=== PATIENT | male | born 1970 | race Caucasian/White ===

== ENCOUNTER → 2017-01-26 | Outpatient (CLI) | payer BC ==
--- NOTE | 2017-01-26 16:03 | KCIC ---
PROCEDURE MRI lumbar spine without contrast HISTORY Lumbar radiculitis, pain in the right leg, previous fall May 2016, progressive low back pain TECHNIQUE Multiplanar, multi sequential non contrast MR imaging was performed of the lumbar spine. COMPARISON None FINDINGS Lumbar vertebral body stature and AP alignment are adequate. Conus terminates at T12-L1. There is fairly advanced degenerative disc disease at L5-S1 and to a somewhat lesser degree at L4-5, L3-4, and L1-2. There is no significant marrow edema. T11-12: There is minimal disc osteophyte complex. Spinal canal and neural foramina are adequate. T12-L1: Spinal canal and neural foramina are adequate. L1-2: There is minimal disc osteophyte complex and bulge. Spinal canal and neural foramina are adequate. L2-3: There is minimal disc osteophyte complex and bulge. There is posterior annular tear. Spinal canal and neural foramina are adequate. L3-4: There is minimal disc osteophyte complex and bulge. There is mild narrowing of the inferior left neural foramen by bulge/protrusion, near undersurface of the exiting left L3 nerve root without displacement. Right neural foramen is overall adequate. Spinal canal is adequate. L4-5: There is minimal disc osteophyte complex and bulge. There is very mild narrowing of the far lateral recesses bilaterally. There is mild facet degenerative change on the right. There is moderate narrowing of the left neural foramen by disc osteophyte complex and shallow protrusion, near the undersurface of the exiting left L4 nerve root in the neural foramen. Right neural foramen is overall adequate. L5-S1: There is broad posterior bulge and very shallow central protrusion. Spinal canal is adequate. There is no displacement of the descending S1 nerve roots. Left neural foramen is adequate. Disc osteophyte complex and protrusion contributes to moderate to severe narrowing of the right neural foramen greater distally with impingement of the exiting right L5 nerve root in the distal neural foramen and proximal extraforaminal region. IMPRESSION 1. There is more significant narrowing of the right L5-S1 neural foramen by disc osteophyte complex and protrusion with impingement of the exiting right L5 nerve root. There is moderate narrowing of the left L4-5 neural foramen. 2. There is fairly advanced degenerative disc disease at L5-S1, to a lesser degree at other levels other than sparing L2-3. 3. There is no significant lumbar spinal stenosis, very mild narrowing of the far lateral recesses bilaterally at L4-5. Electronically signed by: Wang Michael MD (Jan 26, 2017 16:01:40)
== END | disposition home or self-care (01) ==
LOC: KCIC MRI 14:34
PROVIDERS: ATTEND Physical Medicine & Rehabilitation
DX: M51.37 Other intervertebral disc degeneration, lumbosacral region (principal)
CPT/HCPCS: 72148

== ENCOUNTER 2017-09-16 22:39 | Inpatient (IN) | payer BC ==
[~2017-09-16] VITALS: Ht 167.6 cm; Wt 100.0 kg
--- NOTE | 2017-09-16 22:52 | PHYS DOC ---
Adult General Chief Complaint Chief Complaint: CHEST PAIN HPI HPI Patient is a 46 year old male who presents with chest pain/ epigastric abdominal discomfort. He states his been going on for the last week and is been getting worse. He states the burning sensation radiates up into his throat. States the discomfort is worse in his have some shortness of breath when he ambulates. States is different and he had his heart attack when he had pain down his left arm. He has had some nausea vomiting and noticed a speck of blood in his vomit today. He is also been having 6 loose stools today. He states the pains better when he takes Tums or Pepto-Bismol. He's also been using Zantac [id number]. He states he's had a heart attack and had have stents 2 years ago the [facility]. He continues to smoke. He does take a baby aspirin daily and has on a shot for his cholesterol. Review of Systems Review of Systems Constitutional: Denies fever or chills [] Eyes: Denies change in visual acuity, redness, or eye pain [] HENT: Denies nasal congestion or sore throat [] Respiratory: Denies cough or shortness of breath [] Cardiovascular: No additional information not addressed in HPI [] GI: Positive for abdominal pain, nausea, vomiting, bloody stools or diarrhea [] : Denies dysuria or hematuria [] Musculoskeletal: Denies back pain or joint pain [] Integument: Denies rash or skin lesions [] Neurologic: Denies headache, focal weakness or sensory changes [] Endocrine: Denies polyuria or polydipsia [] All other systems were reviewed and found to be within normal limits, except as documented in this note. Current Medications Current Medications Current Medications Medications (Trade) Dose Ordered Sig/Amina Start Time Stop Time Status Last Admin Dose Admin Morphine Sulfate 2 mg PRN Q15MIN PRN 09/16/17 23:00 09/17/17 10:04 DC Multi-Ingredient Mouthwash/Gargle (Gi Cocktail Single Dose) 15 ml 1X ONCE 09/16/17 23:30 09/16/17 23:31 DC 09/16/17 23:24 15 ML Nitroglycerin (Nitrostat) 0.4 mg PRN Q5MIN PRN 09/16/17 23:00 09/17/17 10:04 DC 09/16/17 23:09 0.4 MG Allergies Allergies Allergies Coded Allergies Type Severity Reaction Last Updated Verified hydrocodone Allergy Mild Hallucinations 09/16/17 Yes oxycodone Allergy Mild hallucinations 09/16/17 Yes Physical Exam Physical Exam Constitutional: Well developed, well nourished, no acute distress, non-toxic appearance. [] HENT: Normocephalic, atraumatic, bilateral external ears normal, oropharynx moist, no oral exudates, nose normal. [] Eyes: PERRLA, EOMI, conjunctiva normal, no discharge. [] Neck: Normal range of motion, no tenderness, supple, no stridor. [] Cardiovascular:Heart rate regular rhythm, no murmur [] Lungs & Thorax: Bilateral breath sounds clear to auscultation [] Abdomen: Bowel sounds normal, soft, no tenderness to palpation in the epigastric area, no rebound or guarding, no masses, no pulsatile masses. [] Skin: Warm, dry, no erythema, no rash. [] Back: No tenderness, no CVA tenderness. [] Extremities: No tenderness, no cyanosis, no clubbing, ROM intact, no edema. [] Neurologic: Alert and oriented X 3, normal motor function, normal sensory function, no focal deficits noted. [] Psychologic: Affect normal, judgement normal, mood normal. [] Current Patient Data Vital Signs Vital Signs Date Time Temp Pulse Resp B/P (MAP) Pulse Ox O2 Delivery O2 Flow Rate FiO2 09/16/17 23:35 82 17 108/66 (80) 98 Room Air 09/16/17 22:41 97.9 97.9 Lab Values Laboratory Tests Test 09/16/17 22:51 09/16/17 23:30 09/16/17 23:45 White Blood Count 8.7 x10^3/uL (4.0-11.0) Red Blood Count 5.01 x10^6/uL (4.30-5.70) Hemoglobin 15.7 g/dL (13.0-17.5) Hematocrit 46.7 % (39.0-53.0) Mean Corpuscular Volume 93 fL (79-100) Mean Corpuscular Hemoglobin 31 pg (25-35) Mean Corpuscular Hemoglobin Concent 34 g/dL (31-37) Red Cell Distribution Width 14.9 % (11.5-14.5) H Platelet Count 255 x10^3/uL (140-400) Neutrophils (%) (Auto) 61 % (31-73) Lymphocytes (%) (Auto) 28 % (24-48) Monocytes (%) (Auto) 9 % (0-9) Eosinophils (%) (Auto) 2 % (0-3) Basophils (%) (Auto) 0 % (0-3) Neutrophils # (Auto) 5.3 x10^3uL (1.8-7.7) Lymphocytes # (Auto) 2.4 x10^3/uL (1.0-4.8) Monocytes # (Auto) 0.8 x10^3/uL (0.0-1.1) Eosinophils # (Auto) 0.2 x10^3/uL (0.0-0.7) Basophils # (Auto) 0.0 x10^3/uL (0.0-0.2) Prothrombin Time 11.9 SEC (11.7-14.0) Prothrombin Time INR 0.9 (0.8-1.1) Sodium Level 140 mmol/L (136-145) Potassium Level 3.8 mmol/L (3.5-5.1) Chloride Level 103 mmol/L (98-107) Carbon Dioxide Level 30 mmol/L (21-32) Anion Gap 7 (6-14) Blood Urea Nitrogen 20 mg/dL (8-26) Creatinine 1.2 mg/dL (0.7-1.3) Estimated GFR (Cockcroft-Gault) 65.2 Glucose Level 118 mg/dL (70-99) H Calcium Level 9.2 mg/dL (8.5-10.1) Magnesium Level 2.4 mg/dL (1.8-2.4) Total Bilirubin 0.4 mg/dL (0.2-1.0) Direct Bilirubin 0.1 mg/dL (0.0-0.2) Aspartate Amino Transferase (AST) 26 U/L (15-37) Alanine Aminotransferase (ALT) 30 U/L (16-63) Alkaline Phosphatase 113 U/L (46-116) Creatine Kinase 269 U/L (39-308) Creatine Kinase MB (Mass) 1.3 ng/mL (0.0-3.6) Creatine Kinase MB Relative Index 0.5 % (0-4) Troponin I Quantitative < 0.017 ng/mL (0.000-0.055) RJ-Tip-Q-Type Natriuretic Peptide 34 pg/mL (0-124) Total Protein 7.7 g/dL (6.4-8.2) Albumin 3.4 g/dL (3.4-5.0) Lipase 238 U/L (73-393) Thyroid Stimulating Hormone (TSH) 2.220 uIU/mL (0.358-3.74) Stool Occult Blood Negative (NEG) Urine Collection Type Unknown Urine Color Yellow Urine Clarity Clear Urine pH 5.5 Urine Specific [place] >=1.030 Urine Protein Negative mg/dL (NEG-TRACE) Urine Glucose (UA) Negative mg/dL (NEG) Urine Ketones (Stick) Negative mg/dL (NEG) Urine Blood Negative (NEG) Urine Nitrite Negative (NEG) Urine Bilirubin Negative (NEG) Urine Urobilinogen Dipstick 0.2 mg/dL (0.2 mg/dL) Urine Leukocyte Esterase Small (NEG) Urine RBC 0 /HPF (0-2) Urine WBC 1-4 /HPF (0-4) Urine Squamous Epithelial Cells Occ /LPF Urine Bacteria 0 /HPF (0-FEW) Urine Mucus Mod /LPF Urine Opiates Screen Neg (NEG) Urine Methadone Screen Neg (NEG) Urine Barbiturates Neg (NEG) Urine Phencyclidine Screen Neg (NEG) Urine Amphetamine/Methamphetamine Pos (NEG) Urine Benzodiazepines Screen Neg (NEG) Urine Cocaine Screen Neg (NEG) Urine Cannabinoids Screen Neg (NEG) Urine Ethyl Alcohol Neg (NEG) Laboratory Tests 09/16/17 22:51 Laboratory Tests 09/16/17 22:51 EKG EKG EKG shows sinus rhythm with a rate of [address] elevations or T- wave inversions appreciated, left axis deviation noted, QTC 434 ms, as interpreted by me. Radiology/Procedures Radiology/Procedures One view chest x-ray did not show any focal consolidations, bony abnormality's, pneumothorax, as interpreted by me.[] Impressions: Chest pain Nausea vomiting diarrhea Coronary artery disease Dyslipidemia Course & Med Decision Making Course & Med Decision Making Pertinent Labs and Imaging studies reviewed. (See chart for details) EKG, labs are nonacute. Patient will be admitted to the hospitalist for chest pain rule out. I also typed and screened him because he states he's had a little blood on vomiting. He's not had any additional vomiting or bleeding in the ER. He is stable to be admitted to the floor. Interim orders have been written. Dragon Disclaimer Dragon Disclaimer This electronic medical record was generated, in whole or in part, using a voice recognition dictation system. Departure Departure Impression: Primary Impression: Chest pain Disposition: ADMITTED INPATIENT Admitting Physician: Bettina Nelson Condition: STABLE Referrals: UNKNOWN PCP NAME (PCP) Scripts Pantoprazole Sodium (PROTONIX) 40 Mg Tablet.dr 1 TAB PO DAILY, #30 TAB 5 Refills Prov: CARRIE CONCEPCION MD 09/17/17 MICA ROBERTSON MD Sep 16, 2017 22:52
[2017-09-16] MEDS ORDERED: NITROGLYCERIN SUBLINGUAL 0.4 MG BOTTLE OF 25. SL PRN (23:00)
[2017-09-16] MEDS ORDERED: MORPHINE SULFATE 2 MG/ML DISP.SYRIN. IV/SQ PRN (23:00)
[2017-09-16 23:13] LABS: BASO % 0 % (0-3); EOS % 2 % (0-3); HEMATOCRIT 46.7 % (39.0-53.0); HEMOGLOBIN 15.7 g/dL (13.0-17.5); LYMPH # 2.4 x10^3/uL (1.0-4.8); LYMPH % 28 % (24-48); MEAN CORPUSCULAR HEMOGLOBIN 31 pg (25-35); MEAN CORPUSCULAR HGB CONC 34 g/dL (31-37); MEAN CORPUSCULAR VOLUME 93 fL (79-100); MONO % 9 % (0-9); NEUT % 61 % (31-73); PLATELET COUNT 255 x10^3/uL (140-400); RED BLOOD COUNT 5.01 x10^6/uL (4.30-5.70); RED CELL DISTRIBUTION WIDTH 14.9 % (11.5-14.5); WHITE BLOOD COUNT 8.7 x10^3/uL (4.0-11.0)
[2017-09-16] MEDS ORDERED: LIDO:MAALOX:DONNATAL 1:1:1 15 ML SINGLE DOSE ONE (23:22)
[2017-09-16] MEDS ORDERED: LIDO:MAALOX:DONNATAL 1:1:1 15 ML SINGLE DOSE SWSW ONE (23:30)
[2017-09-16 23:37] LABS: CALCIUM 9.2 mg/dL (8.5-10.1); CREATININE 1.2 mg/dL (0.7-1.3); GFR 65.2; POTASSIUM 3.8 mmol/L (3.5-5.1)
[2017-09-16 23:38] LABS: INR 0.9 (0.8-1.1); PROTHROMBIN TIME PATIENT 11.9 SEC (11.7-14.0)
[2017-09-16 23:45] LABS: ALBUMIN 3.4 g/dL (3.4-5.0); DIRECT BILIRUBIN 0.1 mg/dL (0.0-0.2); MAGNESIUM 2.4 mg/dL (1.8-2.4); TOTAL BILIRUBIN 0.4 mg/dL (0.2-1.0); TOTAL PROTEIN 7.7 g/dL (6.4-8.2)
[2017-09-16 23:48] LABS: CKMB MASS 1.3 ng/mL (0.0-3.6)
[2017-09-16 23:55] VITALS: BP 114/72
[2017-09-17 00:09] LABS: BARBITURATES NEG (NEG); BENZODIAZEPINES NEG (NEG); CANNABINOIDS NEG (NEG); COCAINE NEG (NEG); METHADONE NEG (NEG); OPIATES NEG (NEG); PHENCYCLIDINE NEG (NEG)
[2017-09-17 00:25] LABS: NEG OBC FOB NEG; POS OBC FOB POS
[2017-09-17 00:37] LABS: BILIRUBIN,URINE NEGATIVE (NEG); GLUCOSE,URINE NEGATIVE (NEG); NITRITE,URINE NEGATIVE (NEG); PH,URINE 5.5; PROTEIN,URINE NEGATIVE (NEG-TRACE); UROBILINOGEN,URINE 0.2 mg/dL (0.2 mg/dL)
[2017-09-17] MEDS ORDERED: ASPI-630 PO (00:51)
[2017-09-17] MEDS ORDERED: RANI150C PO (00:51)
[2017-09-17] MEDS ORDERED: EVOL140S SQ (00:51)
[2017-09-17] MEDS ORDERED: METO-239 PO (00:51)
[2017-09-17] MEDS ORDERED: ONDANSETRON PF 4 MG/2 ML VIAL. IV PRN ×2 (01:00→08:30)
[2017-09-17 01:12] LABS: BACTERIA,URINE 0 /HPF (0-FEW); RBC,URINE 0 /HPF (0-2); SQUAMOUS EPITHELIAL CELL,UR OCC /LPF
[2017-09-17 03:00] VITALS: BP 107/70
[2017-09-17 07:00] VITALS: BP 100/56
--- NOTE | 2017-09-17 08:09 | RAD ---
Single view chest History:chest pain An AP view of the chest is submitted. Comparison: None Findings: There is no significant infiltrate, pleural effusion, or pneumothorax. The pericardial cardiac silhouette is within normal limits in size. The trachea is in the midline. There is eventration right hemidiaphragm. There is degenerative change left acromioclavicular joint. Impression: There is no evidence of acute cardiopulmonary disease.
--- NOTE | 2017-09-17 08:09 | CONS ---
DATE OF CONSULTATION: 09/17/2017 REASON FOR CONSULTATION: Chest discomfort. HISTORY OF PRESENT ILLNESS: The patient is a 46-year-old male with past medical history as noted below, who presents to the hospital in the setting of gastroesophageal issues. He reports over the last week or so, he has had some progressive heartburn. He has been using doses of PPIs and H2 blockers. He has also had explosive diarrhea according to him. He denies any new medications or sick contacts. Upon arrival to the ER, he was given a GI cocktail, which he reports relieved his chest discomfort, which appears to be related to his heartburn. Of note, the patient has had previous coronary intervention and he reports that his current symptoms do not feel like his prior symptoms. He denies any exertional angina or chest pain. He reports of recent stress test at [facility] 3 months ago, which was apparently unremarkable. PAST MEDICAL HISTORY: 1. Coronary artery disease, status post PCI, vessels unknown. 2. Minimal hypertension. 3. Dyslipidemia, on Repatha. 4. Gastroesophageal reflux disease. SOCIAL HISTORY: The patient continues to smoke. He is currently unemployed. He lives with his girlfriend. He denies any significant alcohol use. He denies any illicit drug use. FAMILY HISTORY: Noncontributory. ALLERGIES: HYDROCODONE AND OXYCODONE. CARDIOVASCULAR MEDICATIONS: 1. Aspirin 81 mg daily. 2. Repatha 140 mg q. 2 weeks. 3. Metoprolol succinate 25 mg daily. 4. Ranitidine 150 mg daily. REVIEW OF SYSTEMS: Negative for 10 out of 14 systems reviewed, unless otherwise mentioned above in the HPI. PHYSICAL EXAMINATION: VITAL SIGNS: Afebrile, 78, 18, 107/70 and 98% on room air. GENERAL: He is alert and oriented, in no acute distress. HEAD AND NECK EXAMINATION: Unremarkable. CARDIAC: Regular rate and rhythm, without any murmurs, rubs or gallops. LUNGS: Clear to auscultation bilaterally anteriorly. ABDOMEN: Mildly tender to palpation diffusely. No rebound or guarding. EXTREMITIES: No clubbing, cyanosis or edema. A 2+ radial and dorsalis pedis pulses. NEUROLOGIC: No focal deficits. MUSCULOSKELETAL: No trauma. DIAGNOSTIC STUDIES: Hemoglobin 15.7, platelets 255,000. Creatinine 1.2. Troponin negative x 2. Chest x-ray reveals minimal vascular congestion, without any obvious infiltrates. EKG is unremarkable. IMPRESSION: 1. Chest discomfort secondary to gastroesophageal reflux disease. 2. Coronary artery disease, currently stable without angina, with negative cardiac biomarkers and EKG. RECOMMENDATIONS: At this present time, given the fact that the patient's enzymes are normal and EKG is unremarkable as well as a recent stress test which has been negative, it is very low likelihood that he has any coronary pathology. Recommend further evaluation for GI issues. Thank you for this consultation. Please call with any questions. The patient will follow up with his primary bakery assistant at [facility]. JAI FLOWERS MD DR: VANE/paul JOB#: [id number] / [id number] SHIRA
[2017-09-17] MEDS ORDERED: IPRATRPIUM/ALBUTEROL 0.5/2.5MG 3 ML NEBU. NEB SCH (08:30)
[2017-09-17] MEDS ORDERED: MAG HYDROX/ALUMINUM HYD/SIMETH 30 ML ORAL.SUSP PO PRN (08:30)
[2017-09-17] MEDS ORDERED: PANTOPRAZOLE 40 MG TABLET.DR. PO SCH (08:30)
[2017-09-17] MEDS ORDERED: CALCIUM CARBONATE 500 MG TAB.CHEW PO PRN (08:30)
[2017-09-17 09:00] VITALS: BP 100/56
[2017-09-17] MEDS ORDERED: NON FORMULARY ITEM (Evolocumab (Repatha Syringe) 140 MG) SQ SCH (09:00)
[2017-09-17] MEDS ORDERED: FAMOTIDINE 20 MG TABLET. PO SCH (09:00)
[2017-09-17] MEDS ORDERED: ASPIRIN CHEWABLE 81 MG TABLET. PO SCH (09:00)
[2017-09-17] MEDS ORDERED: METOPROLOL SUCC 24HR ER 25 MG TAB.ER.24H. PO SCH (09:00)
[2017-09-17] MEDS ORDERED: PANT40TA3 PO (09:48)
--- NOTE | 2017-09-17 09:52 | PDOC1 ---
History and Physical Date of Admission Date of Admission DATE: 09/17/17 TIME: 09:48 Identification/Chief Complaint Chief Complaint chest pain Problems: Source Source: Caregiver, Chart review, Patient History of Present Illness History of Present Illness 46 y,o male, obese sedentary but no known CAD,admitted for CP, CE and ekg r,o cardiac cause, better with GI cocktail, HAs been takling zantac 6x day maybe x mos with no relief, I advised PPI and ff up GI, Gave names, I faxed PPI to his pharmacy. He has had recent [facility] work up 3 mos ago including stress test and was neg, Cleared from cards to go home, Seen and examined, Dw too time 32 mins all qs answered Conults: cards Proc: none Past Medical History Cardiovascular: No pertinent hx Pulmonary: No pertinent hx GI: No pertinent hx, GERD Heme/Onc: No pertinent hx Hepatobiliary: No pertinent hx Psych: No pertinent hx Infectious disease: No pertinent hx ENT: No pertinent hx Renal/: No pertinent hx Endocrine: No pertinent hx Dermatology: No pertinent hx Past Surgical History Past Surgical History: No pertinent history Family History Family History: Hypertension Social History Smoke: No ALCOHOL: none Drugs: None Current Problem List Problem List Problems Medical Problems: (1) Chest pain Status: Acute Problems: Current Medications Current Medications Current Medications Nitroglycerin (Nitrostat) 0.4 mg PRN Q5MIN PRN SL CP RATING > 1/10 Last administered on 09/16/17 23:09; Start 09/16/17 at 23:00; Stop 09/17/17 at 22 :59 Morphine Sulfate 2 mg PRN Q15MIN PRN IV/SQ PAIN GREATER THAN 3/10; Start 09/16 at 23:00; Stop 09/17/17 at 22:59 Multi-Ingredient Mouthwash/Gargle (Gi Cocktail Single Dose) 15 ml 1X ONCE SWSW Last administered on 09/16/17 23:24; Start 09/16/17 at 23:30; Stop at 23:31; Status DC Ondansetron HCl (Zofran) 4 mg PRN Q8HRS PRN IV NAUSEA/VOMITING; Start at 01:00; Stop 09/17/17 at 08:17; Status DC Ondansetron HCl (Zofran) 4 mg PRN Q6HRS PRN IV NAUSEA/VOMITING; Start at 08:30; Stop 09/18/17 at 08:29 Albuterol/ Ipratropium (Duoneb) 3 ml RTQID NEB Last administered on 09/17/17t 08:30; Start 09/17/17 at 08:30 Aspirin (Children'S Aspirin) 81 mg DAILY PO ; Start 09/17/17 at 09:00 Metoprolol Succinate (Toprol Xl) 25 mg DAILY PO ; Start 09/17/17 at 09:00 Non-Formulary Medication 140 mg Q2WKS SQ ; Start 09/17/17 at 09:00; Status UNV Famotidine (Pepcid) 20 mg DAILY PO ; Start 09/17/17 at 09:00 Pantoprazole Sodium (Protonix) 40 mg DAILYAC PO ; Start 09/17/17 at 08:30 Calcium Carbonate/ Glycine (Tums) 500 mg PRN AFTMEALHC PRN PO INDIGESTION; Start 09/17/17 at 08:30 Al Hydroxide/Mg Hydroxide (Mylanta Plus Xs) 30 ml PRN Q2HR PRN PO HEARTBURN / GAS; Start 09/17/17 at 08:30 Active Scripts Active Reported Repatha Syringe (Evolocumab) 140 Mg/1 Ml Syringe 140 Mg SQ Q2WKS Ranitidine Hcl 150 Mg Capsule 1 Cap PO DAILY Aspirin 81 Mg Tab.chew 1 Tab PO DAILY Metoprolol Succinate ( Xl ) (Metoprolol Succinate) 25 Mg Tab.er.24h 1 Tab PO DAILY Allergies Allergies: Coded Allergies: hydrocodone (Verified Allergy, Mild, Hallucinations, 09/16/17) oxycodone (Verified Allergy, Mild, hallucinations, 09/16/17) ROS Review of System all 14 pt reveiwed neg Physical Exam General: Alert, Oriented X3, Cooperative, No acute distress HEENT: Atraumatic, PERRLA, EOMI Lungs: Clear to auscultation, Normal air movement Heart: S1S2, RRR, no thrills, no rubs, no gallops, no murmurs Cardiovascular: S1, S2 Abdomen: Normal bowel sounds, Soft, No tenderness, No hepatosplenomegaly, No masses Male Genitals Exam: normal genitalia, normal prostate Rectal Exam: not examined PELVIC: Nml ext genitalia Extremities: No clubbing, No cyanosis, No edema, Normal pulses, No tenderness/ swelling Skin: No rashes, No breakdown, No significant lesion Neuro: Normal gait, Normal speech, Strength at 5/5 X4 ext, Normal tone, Sensation intact, Cranial nerves 3-12 NL, Reflexes 2+ Psych/Mental Status: Mental status NL Vitals Vitals Vital Signs Date Time Temp Pulse Resp B/P (MAP) Pulse Ox O2 Delivery O2 Flow Rate FiO2 09/17/17 09:00 87 100/56 09/17/17 08:46 100 Room Air 09/17/17 07:00 97.7 18 97.7 Labs Labs Laboratory Tests Test 09/16/17 22:51 09/16/17 23:30 09/16/17 23:45 09/17/17 07:00 White Blood Count 8.7 x10^3/uL (4.0-11.0) Red Blood Count 5.01 x10^6/uL (4.30-5.70) Hemoglobin 15.7 g/dL (13.0-17.5) Hematocrit 46.7 % (39.0-53.0) Mean Corpuscular Volume 93 fL (79-100) Mean Corpuscular Hemoglobin 31 pg (25-35) Mean Corpuscular Hemoglobin Concent 34 g/dL (31-37) Red Cell Distribution Width 14.9 % (11.5-14.5) Platelet Count 255 x10^3/uL (140-400) Neutrophils (%) (Auto) 61 % (31-73) Lymphocytes (%) (Auto) 28 % (24-48) Monocytes (%) (Auto) 9 % (0-9) Eosinophils (%) (Auto) 2 % (0-3) Basophils (%) (Auto) 0 % (0-3) Neutrophils # (Auto) 5.3 x10^3uL (1.8-7.7) Lymphocytes # (Auto) 2.4 x10^3/uL (1.0-4.8) Monocytes # (Auto) 0.8 x10^3/uL (0.0-1.1) Eosinophils # (Auto) 0.2 x10^3/uL (0.0-0.7) Basophils # (Auto) 0.0 x10^3/uL (0.0-0.2) Prothrombin Time 11.9 SEC (11.7-14.0) Prothromb Time International Ratio 0.9 (0.8-1.1) Sodium Level 140 mmol/L (136-145) Potassium Level 3.8 mmol/L (3.5-5.1) Chloride Level 103 mmol/L (98-107) Carbon Dioxide Level 30 mmol/L (21-32) Anion Gap 7 (6-14) Blood Urea Nitrogen 20 mg/dL (8-26) Creatinine 1.2 mg/dL (0.7-1.3) Estimated GFR (Cockcroft-Gault) 65.2 Glucose Level 118 mg/dL (70-99) Calcium Level 9.2 mg/dL (8.5-10.1) Magnesium Level 2.4 mg/dL (1.8-2.4) Total Bilirubin 0.4 mg/dL (0.2-1.0) Direct Bilirubin 0.1 mg/dL (0.0-0.2) Aspartate Amino Transf (AST/SGOT) 26 U/L (15-37) Alanine Aminotransferase (ALT/SGPT) 30 U/L (16-63) Alkaline Phosphatase 113 U/L (46-116) Creatine Kinase 269 U/L (39-308) Creatine Kinase MB (Mass) 1.3 ng/mL (0.0-3.6) Creatine Kinase MB Relative Index 0.5 % (0-4) Troponin I Quantitative < 0.017 ng/mL (0.000-0.055) < 0.017 ng/mL (0.000-0.055) PN-Tgp-B-Type Natriuretic Peptide 34 pg/mL (0-124) Total Protein 7.7 g/dL (6.4-8.2) Albumin 3.4 g/dL (3.4-5.0) Lipase 238 U/L (73-393) Thyroid Stimulating Hormone (TSH) 2.220 uIU/mL (0.358-3.74) Stool Occult Blood Negative (NEG) Urine Collection Type Unknown Urine Color Yellow Urine Clarity Clear Urine pH 5.5 Urine Specific [place] >=1.030 Urine Protein Negative mg/dL (NEG-TRACE) Urine Glucose (UA) Negative mg/dL (NEG) Urine Ketones (Stick) Negative mg/dL (NEG) Urine Blood Negative (NEG) Urine Nitrite Negative (NEG) Urine Bilirubin Negative (NEG) Urine Urobilinogen Dipstick 0.2 mg/dL (0.2 mg/dL) Urine Leukocyte Esterase Small (NEG) Urine RBC 0 /HPF (0-2) Urine WBC 1-4 /HPF (0-4) Urine Squamous Epithelial Cells Occ /LPF Urine Bacteria 0 /HPF (0-FEW) Urine Mucus Mod /LPF Urine Opiates Screen Neg (NEG) Urine Methadone Screen Neg (NEG) Urine Barbiturates Neg (NEG) Urine Phencyclidine Screen Neg (NEG) Urine Amphetamine/Methamphetamine Pos (NEG) Urine Benzodiazepines Screen Neg (NEG) Urine Cocaine Screen Neg (NEG) Urine Cannabinoids Screen Neg (NEG) Urine Ethyl Alcohol Neg (NEG) Laboratory Tests Test 09/16/17 22:51 09/16/17 23:30 09/16/17 23:45 09/17/17 07:00 White Blood Count 8.7 x10^3/uL (4.0-11.0) Red Blood Count 5.01 x10^6/uL (4.30-5.70) Hemoglobin 15.7 g/dL (13.0-17.5) Hematocrit 46.7 % (39.0-53.0) Mean Corpuscular Volume 93 fL (79-100) Mean Corpuscular Hemoglobin 31 pg (25-35) Mean Corpuscular Hemoglobin Concent 34 g/dL (31-37) Red Cell Distribution Width 14.9 % (11.5-14.5) Platelet Count 255 x10^3/uL (140-400) Neutrophils (%) (Auto) 61 % (31-73) Lymphocytes (%) (Auto) 28 % (24-48) Monocytes (%) (Auto) 9 % (0-9) Eosinophils (%) (Auto) 2 % (0-3) Basophils (%) (Auto) 0 % (0-3) Neutrophils # (Auto) 5.3 x10^3uL (1.8-7.7) Lymphocytes # (Auto) 2.4 x10^3/uL (1.0-4.8) Monocytes # (Auto) 0.8 x10^3/uL (0.0-1.1) Eosinophils # (Auto) 0.2 x10^3/uL (0.0-0.7) Basophils # (Auto) 0.0 x10^3/uL (0.0-0.2) Prothrombin Time 11.9 SEC (11.7-14.0) Prothromb Time International Ratio 0.9 (0.8-1.1) Sodium Level 140 mmol/L (136-145) Potassium Level 3.8 mmol/L (3.5-5.1) Chloride Level 103 mmol/L (98-107) Carbon Dioxide Level 30 mmol/L (21-32) Anion Gap 7 (6-14) Blood Urea Nitrogen 20 mg/dL (8-26) Creatinine 1.2 mg/dL (0.7-1.3) Estimated GFR (Cockcroft-Gault) 65.2 Glucose Level 118 mg/dL (70-99) Calcium Level 9.2 mg/dL (8.5-10.1) Magnesium Level 2.4 mg/dL (1.8-2.4) Total Bilirubin 0.4 mg/dL (0.2-1.0) Direct Bilirubin 0.1 mg/dL (0.0-0.2) Aspartate Amino Transf (AST/SGOT) 26 U/L (15-37) Alanine Aminotransferase (ALT/SGPT) 30 U/L (16-63) Alkaline Phosphatase 113 U/L (46-116) Creatine Kinase 269 U/L (39-308) Creatine Kinase MB (Mass) 1.3 ng/mL (0.0-3.6) Creatine Kinase MB Relative Index 0.5 % (0-4) Troponin I Quantitative < 0.017 ng/mL (0.000-0.055) < 0.017 ng/mL (0.000-0.055) KC-Qyy-T-Type Natriuretic Peptide 34 pg/mL (0-124) Total Protein 7.7 g/dL (6.4-8.2) Albumin 3.4 g/dL (3.4-5.0) Lipase 238 U/L (73-393) Thyroid Stimulating Hormone (TSH) 2.220 uIU/mL (0.358-3.74) Stool Occult Blood Negative (NEG) Urine Collection Type Unknown Urine Color Yellow Urine Clarity Clear Urine pH 5.5 Urine Specific [place] >=1.030 Urine Protein Negative mg/dL (NEG-TRACE) Urine Glucose (UA) Negative mg/dL (NEG) Urine Ketones (Stick) Negative mg/dL (NEG) Urine Blood Negative (NEG) Urine Nitrite Negative (NEG) Urine Bilirubin Negative (NEG) Urine Urobilinogen Dipstick 0.2 mg/dL (0.2 mg/dL) Urine Leukocyte Esterase Small (NEG) Urine RBC 0 /HPF (0-2) Urine WBC 1-4 /HPF (0-4) Urine Squamous Epithelial Cells Occ /LPF Urine Bacteria 0 /HPF (0-FEW) Urine Mucus Mod /LPF Urine Opiates Screen Neg (NEG) Urine Methadone Screen Neg (NEG) Urine Barbiturates Neg (NEG) Urine Phencyclidine Screen Neg (NEG) Urine Amphetamine/Methamphetamine Pos (NEG) Urine Benzodiazepines Screen Neg (NEG) Urine Cocaine Screen Neg (NEG) Urine Cannabinoids Screen Neg (NEG) Urine Ethyl Alcohol Neg (NEG) VTE Prophylaxis Ordered VTE Prophylaxis Devices: Yes VTE Pharmacological Prophylaxi: Yes Assessment/Plan Assessment/Plan 1. GERD 2. NOn cardiac CP 3. Obese BMI 35] 4. Recent normal stress test PLAN: home today OP GI PPI CARRIE CONCEPCION MD Sep 17, 2017 09:52
--- NOTE | 2017-09-17 09:53 | PDOC3 ---
Discharge Summary Visit Information Date of Admission: Sep 16, 2017 Date of Discharge: Sep 17, 2017 Admitting Diagnosis Comment: GERD, Obesity Recent normal MPI [facility] Final Diagnosis Problems Medical Problems: (1) Chest pain Status: Acute Brief Hospital Course Allergies Allergies Coded Allergies Type Severity Reaction Last Updated Verified hydrocodone Allergy Mild Hallucinations 09/16/17 Yes oxycodone Allergy Mild hallucinations 09/16/17 Yes Vital Signs Vital Signs Date Time Temp Pulse Resp B/P (MAP) Pulse Ox O2 Delivery O2 Flow Rate FiO2 09/17/17 09:00 87 100/56 09/17/17 08:46 100 Room Air 09/17/17 07:00 97.7 18 97.7 Lab Results Laboratory Tests Test 09/16/17 22:51 09/16/17 23:30 09/16/17 23:45 09/17/17 07:00 White Blood Count 8.7 x10^3/uL (4.0-11.0) Red Blood Count 5.01 x10^6/uL (4.30-5.70) Hemoglobin 15.7 g/dL (13.0-17.5) Hematocrit 46.7 % (39.0-53.0) Mean Corpuscular Volume 93 fL (79-100) Mean Corpuscular Hemoglobin 31 pg (25-35) Mean Corpuscular Hemoglobin Concent 34 g/dL (31-37) Red Cell Distribution Width 14.9 % (11.5-14.5) Platelet Count 255 x10^3/uL (140-400) Neutrophils (%) (Auto) 61 % (31-73) Lymphocytes (%) (Auto) 28 % (24-48) Monocytes (%) (Auto) 9 % (0-9) Eosinophils (%) (Auto) 2 % (0-3) Basophils (%) (Auto) 0 % (0-3) Neutrophils # (Auto) 5.3 x10^3uL (1.8-7.7) Lymphocytes # (Auto) 2.4 x10^3/uL (1.0-4.8) Monocytes # (Auto) 0.8 x10^3/uL (0.0-1.1) Eosinophils # (Auto) 0.2 x10^3/uL (0.0-0.7) Basophils # (Auto) 0.0 x10^3/uL (0.0-0.2) Prothrombin Time 11.9 SEC (11.7-14.0) Prothromb Time International Ratio 0.9 (0.8-1.1) Sodium Level 140 mmol/L (136-145) Potassium Level 3.8 mmol/L (3.5-5.1) Chloride Level 103 mmol/L (98-107) Carbon Dioxide Level 30 mmol/L (21-32) Anion Gap 7 (6-14) Blood Urea Nitrogen 20 mg/dL (8-26) Creatinine 1.2 mg/dL (0.7-1.3) Estimated GFR (Cockcroft-Gault) 65.2 Glucose Level 118 mg/dL (70-99) Calcium Level 9.2 mg/dL (8.5-10.1) Magnesium Level 2.4 mg/dL (1.8-2.4) Total Bilirubin 0.4 mg/dL (0.2-1.0) Direct Bilirubin 0.1 mg/dL (0.0-0.2) Aspartate Amino Transf (AST/SGOT) 26 U/L (15-37) Alanine Aminotransferase (ALT/SGPT) 30 U/L (16-63) Alkaline Phosphatase 113 U/L (46-116) Creatine Kinase 269 U/L (39-308) Creatine Kinase MB (Mass) 1.3 ng/mL (0.0-3.6) Creatine Kinase MB Relative Index 0.5 % (0-4) Troponin I Quantitative < 0.017 ng/mL (0.000-0.055) < 0.017 ng/mL (0.000-0.055) DH-[id number]-Type Natriuretic Peptide 34 pg/mL (0-124) Total Protein 7.7 g/dL (6.4-8.2) Albumin 3.4 g/dL (3.4-5.0) Lipase 238 U/L (73-393) Thyroid Stimulating Hormone (TSH) 2.220 uIU/mL (0.358-3.74) Stool Occult Blood Negative (NEG) Urine Collection Type Unknown Urine Color Yellow Urine Clarity Clear Urine pH 5.5 Urine Specific [place] >=1.030 Urine Protein Negative mg/dL (NEG-TRACE) Urine Glucose (UA) Negative mg/dL (NEG) Urine Ketones (Stick) Negative mg/dL (NEG) Urine Blood Negative (NEG) Urine Nitrite Negative (NEG) Urine Bilirubin Negative (NEG) Urine Urobilinogen Dipstick 0.2 mg/dL (0.2 mg/dL) Urine Leukocyte Esterase Small (NEG) Urine RBC 0 /HPF (0-2) Urine WBC 1-4 /HPF (0-4) Urine Squamous Epithelial Cells Occ /LPF Urine Bacteria 0 /HPF (0-FEW) Urine Mucus Mod /LPF Urine Opiates Screen Neg (NEG) Urine Methadone Screen Neg (NEG) Urine Barbiturates Neg (NEG) Urine Phencyclidine Screen Neg (NEG) Urine Amphetamine/Methamphetamine Pos (NEG) Urine Benzodiazepines Screen Neg (NEG) Urine Cocaine Screen Neg (NEG) Urine Cannabinoids Screen Neg (NEG) Urine Ethyl Alcohol Neg (NEG) Laboratory Tests Test 09/16/17 22:51 09/16/17 23:30 09/16/17 23:45 09/17/17 07:00 White Blood Count 8.7 x10^3/uL (4.0-11.0) Red Blood Count 5.01 x10^6/uL (4.30-5.70) Hemoglobin 15.7 g/dL (13.0-17.5) Hematocrit 46.7 % (39.0-53.0) Mean Corpuscular Volume 93 fL (79-100) Mean Corpuscular Hemoglobin 31 pg (25-35) Mean Corpuscular Hemoglobin Concent 34 g/dL (31-37) Red Cell Distribution Width 14.9 % (11.5-14.5) Platelet Count 255 x10^3/uL (140-400) Neutrophils (%) (Auto) 61 % (31-73) Lymphocytes (%) (Auto) 28 % (24-48) Monocytes (%) (Auto) 9 % (0-9) Eosinophils (%) (Auto) 2 % (0-3) Basophils (%) (Auto) 0 % (0-3) Neutrophils # (Auto) 5.3 x10^3uL (1.8-7.7) Lymphocytes # (Auto) 2.4 x10^3/uL (1.0-4.8) Monocytes # (Auto) 0.8 x10^3/uL (0.0-1.1) Eosinophils # (Auto) 0.2 x10^3/uL (0.0-0.7) Basophils # (Auto) 0.0 x10^3/uL (0.0-0.2) Prothrombin Time 11.9 SEC (11.7-14.0) Prothromb Time International Ratio 0.9 (0.8-1.1) Sodium Level 140 mmol/L (136-145) Potassium Level 3.8 mmol/L (3.5-5.1) Chloride Level 103 mmol/L (98-107) Carbon Dioxide Level 30 mmol/L (21-32) Anion Gap 7 (6-14) Blood Urea Nitrogen 20 mg/dL (8-26) Creatinine 1.2 mg/dL (0.7-1.3) Estimated GFR (Cockcroft-Gault) 65.2 Glucose Level 118 mg/dL (70-99) Calcium Level 9.2 mg/dL (8.5-10.1) Magnesium Level 2.4 mg/dL (1.8-2.4) Total Bilirubin 0.4 mg/dL (0.2-1.0) Direct Bilirubin 0.1 mg/dL (0.0-0.2) Aspartate Amino Transf (AST/SGOT) 26 U/L (15-37) Alanine Aminotransferase (ALT/SGPT) 30 U/L (16-63) Alkaline Phosphatase 113 U/L (46-116) Creatine Kinase 269 U/L (39-308) Creatine Kinase MB (Mass) 1.3 ng/mL (0.0-3.6) Creatine Kinase MB Relative Index 0.5 % (0-4) Troponin I Quantitative < 0.017 ng/mL (0.000-0.055) < 0.017 ng/mL (0.000-0.055) XZ-[id number]-Type Natriuretic Peptide 34 pg/mL (0-124) Total Protein 7.7 g/dL (6.4-8.2) Albumin 3.4 g/dL (3.4-5.0) Lipase 238 U/L (73-393) Thyroid Stimulating Hormone (TSH) 2.220 uIU/mL (0.358-3.74) Stool Occult Blood Negative (NEG) Urine Collection Type Unknown Urine Color Yellow Urine Clarity Clear Urine pH 5.5 Urine Specific [place] >=1.030 Urine Protein Negative mg/dL (NEG-TRACE) Urine Glucose (UA) Negative mg/dL (NEG) Urine Ketones (Stick) Negative mg/dL (NEG) Urine Blood Negative (NEG) Urine Nitrite Negative (NEG) Urine Bilirubin Negative (NEG) Urine Urobilinogen Dipstick 0.2 mg/dL (0.2 mg/dL) Urine Leukocyte Esterase Small (NEG) Urine RBC 0 /HPF (0-2) Urine WBC 1-4 /HPF (0-4) Urine Squamous Epithelial Cells Occ /LPF Urine Bacteria 0 /HPF (0-FEW) Urine Mucus Mod /LPF Urine Opiates Screen Neg (NEG) Urine Methadone Screen Neg (NEG) Urine Barbiturates Neg (NEG) Urine Phencyclidine Screen Neg (NEG) Urine Amphetamine/Methamphetamine Pos (NEG) Urine Benzodiazepines Screen Neg (NEG) Urine Cocaine Screen Neg (NEG) Urine Cannabinoids Screen Neg (NEG) Urine Ethyl Alcohol Neg (NEG) Brief Hospital Course Mr. Vital is a 46 old [sex] who presented with [ ] 46 y,o male, obese sedentary but no known CAD,admitted for CP, CE and ekg r,o cardiac cause, better with GI cocktail, HAs been takling zantac 6x day maybe x mos with no relief, I advised PPI and ff up GI, Gave names, I faxed PPI to his pharmacy. He has had recent [facility] work up 3 mos ago including stress test and was neg, Cleared from cards to go home, Seen and examined, Dw too time 32 mins all qs answered Conults: cards Proc: none Discharge Information Condition at Discharge: Improved, Stable Follow Up: Weeks (GI) Disposition/Orders: D/C to Home Scheduled Aspirin (Aspirin), 1 TAB PO DAILY, (Reported) Evolocumab (Repatha Syringe), 140 MG SQ Q2WKS, (Reported) Metoprolol Succinate (Metoprolol Succinate ( Xl )), 1 TAB PO DAILY, (Reported) Pantoprazole Sodium (Protonix), 1 TAB PO DAILY Ranitidine Hcl (Ranitidine Hcl), 1 CAP PO DAILY, (Reported) CARRIE CONCEPCION MD Sep 17, 2017 09:53
--- NOTE | 2017-09-17 12:51 | EKG ---
[facility] [address] [place] [address] Test Date: 2017-09-16 Test Time: 22:45:25 Pat Name: MARINA BARRIENTOS Department: Room: Gender: M Display Director: : 1970 Requested By: MICA ROBERTSON Order Number: [id number] Reading MD: Measurements Intervals [place] Rate: 88 P: 0 [place]: 128 QRS: -10 QRSD: 84 T: 36 QT: 356 QTc: 434 Interpretive Statements SINUS RHYTHM LEFTWARD AXIS OTHERWISE NORMAL ECG RI6.01 No previous ECG available for comparison
== END 2017-09-17 09:46 | disposition home or self-care (01) | DRG 313 ==
LOC: ER 22:39 → 5 NORTH 23:45
PROVIDERS: ADMIT Internal Medicine; ATTEND Internal Medicine
DX: R07.89 Other chest pain (principal); I25.119 Atherosclerotic heart disease of native coronary artery with unspecified angina pectoris; E66.9 Obesity, unspecified; E78.5 Hyperlipidemia, unspecified; F17.200 Nicotine dependence, unspecified, uncomplicated; K21.9 Gastro-esophageal reflux disease without esophagitis; I25.2 Old myocardial infarction; Z79.82 Long term (current) use of aspirin; Z98.61 Coronary angioplasty status; Z68.35 Body mass index [BMI] 35.0-35.9, adult; Z88.5 Allergy status to narcotic agent
CPT/HCPCS: 36415; 71010; 80048; 80076; 80307; 81001; 82274; 82553; 83690; 83735; 83880; 84443; 84484; 85025; 85610; 86850; 86900; 86901; 87086; 93005; 94640; J7620; G0479

== ENCOUNTER 2019-08-07 23:46 | Emergency (ER) | payer BC ==
[~2019-08-07 23:46] MED LIST: ASPI-630 PO; EVOL140S SQ; METO-239 PO; PANT40TA77 PO; RANI150C PO
== END 2019-08-07 23:52 | disposition left against medical advice (07) ==
LOC: ER 23:46
DX: R10.9 Unspecified abdominal pain (principal); Z53.21 Procedure and treatment not carried out due to patient leaving prior to being seen by health care provider